=== PATIENT | male | born 2000 | race African-American/Black ===

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

== ENCOUNTER 2020-02-10 13:05 | Emergency (ER) | payer SELFPAY ==
[~2020-02-10] VITALS: Ht 165.1 cm; Wt 75.0 kg
[2020-02-10 17:32] VITALS: BP 130/70
[2020-02-10] MEDS ORDERED: CEFTRIAXONE SODIUM 1 G/VIAL IM ONE (17:45)
[2020-02-10] MEDS ORDERED: LIDOCAINE HCL 1% 20ML VIAL (Pyxis) INJ INFIL ONE (17:45)
[2020-02-10] MEDS ORDERED: AZITHROMYCIN 500 MG TABLET PO ONE (17:45)
== END 2020-02-10 18:05 | disposition left against medical advice (07) ==
LOC: ER 13:31
DX: A64 Unspecified sexually transmitted disease (principal)
CPT/HCPCS: 99281; J0696; J3490